=== PATIENT | male | born 1955 | race Caucasian/White ===

== ENCOUNTER 2016-02-07 21:38 | Emergency (ER) | payer BC, OTHER ==
[~2016-02-07] VITALS: Ht 170.2 cm; Wt 95.0 kg
[2016-02-07 21:40] VITALS: Ht 170.2 cm; Wt 95.0 kg
[2016-02-07 22:15] VITALS: PULSE 80; TEMP 97.6
[2016-02-07] MEDS ORDERED: morphine 4 MG/ML VIAL IV STA (22:16)
[2016-02-07] MEDS ORDERED: ONDANSETRON 4 MG INJ IV STA (22:16)
[2016-02-07 22:38] LABS: BASOPHILS % 0.5 % (0.0-2.0); EOSINOPHILS # 0.3 10^3/ul (0.0-0.5); EOSINOPHILS % 3.8 % (0.0-7.0); HEMATOCRIT 46.2 % (42.0-52.0); HEMOGLOBIN 15.8 g/dl (14.0-18.0); LYMPHOCYTES # 3.2 10^3/ul (0.8-2.9); LYMPHOCYTES % 43.4 % (15.0-51.0); MEAN CORPUSCULAR HGB CONC 34.1 g/dl (32.0-37.0); MEAN CORPUSCULAR VOLUME 96.8 fl (82.0-101.0); MEAN PLATELET VOLUME 7.6 fl (7.4-10.4); MONOCYTE # 0.6 10^3/ul (0.3-0.9); MONOCYTES % 7.9 % (0.0-11.0); NEUTROPHIL # 3.3 10^3/ul (1.6-7.5); NEUTROPHILS % 44.4 % (39.0-77.0); PLATELET COUNT 302 10^3/UL (140-440); RED BLOOD COUNT 4.78 10^6/ul (4.70-6.10); RED CELL DISTRIBUTION WIDTH 13.9 % (11.5-14.5); UNCORRECTED WBC 7.4 10^3/ul (4.8-10.8); WHITE BLOOD COUNT 7.4 10^3/ul (4.8-10.8)
[2016-02-07 22:39] LABS: CONDITION 1
[2016-02-07 22:42] LABS: ADD UMIC YES; URINE BILIRUBIN (Dip) NEGATIVE (NEGATIVE); URINE BLOOD (Dip) 1+ (NEGATIVE); URINE COLOR LT. YELLOW (YELLOW); URINE KETONES (Dip) NEGATIVE (NEGATIVE); URINE LEUKOCYTE ESTERASE (Dip) NEGATIVE (NEGATIVE); URINE NITRITE (Dip) NEGATIVE (NEGATIVE); URINE TOTAL PROTEIN (Dip) NEGATIVE (NEGATIVE); URINE UROBILINOGEN (Dip) 0.2 E.U./dL (0.1-1.0)
[2016-02-07 22:49] LABS: ALBUMIN 4.4 g/dl (3.3-4.9)
[2016-02-07 22:50] LABS: POTASSIUM 3.8 mmol/L (3.5-5.1)
[2016-02-07 22:52] LABS: BILIRUBIN,INDIRECT 0.5 mg/dl (0-1.1); BILIRUBIN,TOTAL 0.5 mg/dl (0.2-1.3); CREATININE 0.69 mg/dl (0.61-1.24)
[2016-02-07 22:53] LABS: ALBUMIN/GLOBULIN RATIO 1.25; CALCIUM 9.6 mg/dl (8.4-10.2); TOTAL PROTEIN 7.9 g/dl (6.1-8.1)
[2016-02-07 22:54] LABS: URINE RBCS 0-2 /HPF (0)
[2016-02-07 22:57] LABS: SQUAMOUS EPITHELIAL CELL,UR RARE
[2016-02-07 23:48] VITALS: BP 99/58; RESP 17
[2016-02-07] MEDS ORDERED: HYDR-902 PO (23:53)
[2016-02-07] MEDS ORDERED: ONDA4TAB14 PO (23:53)
--- NOTE | 2016-02-08 01:25 | ERD ---
ER Documentation Chief Complaint Date/Time DATE: 02/08/16 TIME: 01:24 Chief Complaint RIGHT SIDE FLANK PAIN X 5 DAYS DENIES N/V HPI Patient is a 61-year-old male with prediabetes and high cholesterol who presents with right-sided abdominal pain. He said that his symptoms started "after a flu". He had cough and right-sided abdominal pain. It was worse after eating. He has no back pain. He has had this for the past 5 days. He has no fevers. The pain comes and goes. Upon review of old medical records this is the patient's first visit to the emergency department. He does not remember the name of his primary doctor. ROS All systems reviewed and are negative except as per history of present illness. Medications Home Meds Active Scripts Ondansetron (Ondansetron Odt) 4 Mg Tab.rapdis, 4 MG PO Q6H Y for NAUSEA AND/OR VOMITING, #30 TAB Prov:ANAMIKA PRATT MD 02/07/16 Hydrocodone/Acetaminophen (Elburn 10-325 Tablet) 1 Each Tablet, 1 TAB PO Q6H Y for PAIN, #7 TAB Prov:ANAMIKA PRATT MD 02/07/16 PMhx/Soc History of Surgery: Yes (RECTAL SURGERY, 1989) Anesthesia Reaction: No Hx Neurological Disorder: No Hx Respiratory Disorders: No Hx Cardiac Disorders: Yes (HIGH CHOLESTEROL) Hx Psychiatric Problems: No Hx Miscellaneous Medical Probl: Yes (PRE-DM) Hx Alcohol Use: No Hx Substance Use: No Hx Tobacco Use: Yes Smoking Status: Current every day smoker FmHx Family History: diabetes Physical Exam Vitals Vital Signs Date Time Temp Pulse Resp B/P Pulse Ox O2 Delivery O2 Flow Rate FiO2 02/07/16 23:48 17 99/58 100 Room Air 02/07/16 22:15 97.6 80 18 132/78 98 02/07/16 21:40 97.6 81 18 132/78 98 Physical Exam Const: Mild distress secondary to pain Head: Atraumatic Eyes: Normal Conjunctiva ENT: Normal External Ears, Nose and Mouth. Neck: Full range of motion..~ No meningismus. Resp: Clear to auscultation bilaterally Cardio: Regular rate and rhythm, no murmurs Abd: Soft, right upper quadrant pain without rebound or guarding Skin: No petechiae or rashes Back: No midline or flank tenderness Ext: No cyanosis, or edema Neur: Awake and alert Psych: Normal Mood and Affect Result Diagram: 02/07/16220402/07/162204 Results 24 hrs Laboratory Tests Test 02/07/16 22:05 Alanine Aminotransferase (ALT/SGPT) 41IU/L Albumin 4.4g/dl Albumin/Globulin Ratio 1.25 Alkaline Phosphatase 131IU/L Anion Gap 16 Aspartate Amino Transf (AST/SGOT) 28IU/L Basophils # 0.010^3/ul Basophils % 0.5% Blood Urea Nitrogen 15mg/dl Calcium Level 9.6mg/dl Carbon Dioxide Level 30mmol/L Chloride Level 102mmol/L Creatinine 0.69mg/dl Direct Bilirubin 0.00mg/dl Eosinophils # 0.310^3/ul Eosinophils % 3.8% Globulin 3.50g/dl Glucose Level 81mg/dl Hematocrit 46.2% Hemoglobin 15.8g/dl Indirect Bilirubin 0.5mg/dl Lipase 92U/L Lymphocytes # 3.210^3/ul Lymphocytes % 43.4% Mean Corpuscular Hemoglobin 33.0pg Mean Corpuscular Hemoglobin Concent 34.1g/dl Mean Corpuscular Volume 96.8fl Mean Platelet Volume 7.6fl Monocytes # 0.610^3/ul Monocytes % 7.9% Neutrophils # 3.310^3/ul Neutrophils % 44.4% Nucleated Red Blood Cells # 0.010^3/ul Nucleated Red Blood Cells % 0.0/100WBC Platelet Count 54538^3/UL Potassium Level 3.8mmol/L Red Blood Count 4.7810^6/ul Red Cell Distribution Width 13.9% Sodium Level 144mmol/L Total Bilirubin 0.5mg/dl Total Protein 7.9g/dl Urine Bilirubin NEGATIVE Urine Clarity CLEAR Urine Color LT. YELLOW Urine Glucose 0.25%% Urine Hemoglobin 1+ Urine Ketones NEGATIVE Urine Leukocyte Esterase NEGATIVE Urine Microscopic RBC 0-2/HPF Urine Microscopic WBC NONE SEEN/HPF Urine Nitrite NEGATIVE Urine Specific [place] 1.015 Urine Squamous Epithelial Cells RARE Urine Total Protein NEGATIVE Urine Urobilinogen 0.2 E.U./dL Urine pH 6.5 White Blood Count 7.410^3/ul Current Medications Medications (Trade) Dose Ordered Sig/Binh Route PRN Reason Start Time Stop Time Status Last Admin Dose Admin Morphine Sulfate (morphine) 4 mg ONCE STAT IV 02/07/16 22:16 02/07/16 22:17 DC 02/07/16 22:27 Ondansetron HCl (Zofran Inj) 4 mg ONCE STAT IV 02/07/16 22:16 02/07/16 22:17 DC 02/07/16 22:27 Procedures/MDM Ultrasound shows no sign of gallstones or gallbladder inflammation per radiology. Smoking Cessation Therapy: Pt. was lectured for greater than 3 minutes on the health risks of continued smoking and the benefits of cessation. Patient is a 61-year-old male who presents with right upper quadrant abdominal pain. His laboratory studies were normal including LFTs and lipase. Ultrasound shows no sign of gallstones or gallbladder infection. At this point I doubt cholecystitis, pancreatitis, appendicitis, or bowel obstruction. I believe outpatient management is appropriate. However the patient will need to follow-up closely with his primary doctor tomorrow morning for reevaluation. He can return sooner for any worsening symptoms. He will be given Elburn and Zofran for symptomatic relief of his pain. Departure Diagnosis: Primary Impression: Abdominal pain Abdominal location: right upper quadrant Qualified Code: R10.11 - Right upper quadrant abdominal pain Condition: Fair Patient Instructions: Abdominal Pain Referrals: Your doctor Additional Instructions: Visite a carlos alberto santamaria para un EXAMEN.Regrese a estas instalaciones si no se mejora yvrose esperbamos o yvrose laci [place]. ANAMIKA PRATT MD Feb 08, 2016 01:25
--- NOTE | 2016-02-08 01:27 | RADRPT ---
PROCEDURE: Abdominal ultrasound, limited. CLINICAL INDICATION: Abdominal pain. TECHNIQUE: Multiple real-time images were acquired of the patient's right upper abdomen utilizing a high resolution transducer. COMPARISON: None FINDINGS: The liver demonstrates normal echogenicity and size measuring 17.5 cm. There is no focal mass or in trahepatic biliary ductal dilatation. The portal vein is patent. The gallbladder is not distended. No gallstones are identified. There is no pericholecystic fluid or gallbladder wall thickening. The common bile duct measures 4.4 mm in maximal dimension. The pancreas is obscured by overlying michael wel gas. No free fluid is identified. The right kidney is normal size and echogenicity measuring 12.0 cm. There is no focal renal mass or echogenic calculus identified. There is no obstructive uropathy. IMPRESSION: Unremarkable right upper abdominal ultrasound. Pancreas obscured by overlying bowel gas. .Lul Bah MD, MD Date Time Electronically viewed and signed by .Lul Bah MD, MD on 02/08/2016 01:26 .T/
== END 2016-02-08 00:06 | disposition home or self-care (01) ==
LOC: E/R 21:38
DX: R10.11 Right upper quadrant pain (principal); F17.210 Nicotine dependence, cigarettes, uncomplicated
CPT/HCPCS: 36415; 76705; 80053; 81001; 83690; 85025; 96374; 96375; 99285; J2270; J2405; 81003

== ENCOUNTER 2017-12-14 05:48 | Day surgery (SDC) | END 2017-12-14 11:10 | disposition home or self-care (01) ==